=== PATIENT | female | born 1965 | race Caucasian/White ===

== ENCOUNTER 2019-04-15 05:15 | Emergency (ER) | payer BC ==
[~2019-04-15] VITALS: Ht 167.6 cm; Wt 47.8 kg
[~2019-04-15 05:15] MED LIST: MULT-658 PO
[2019-04-15] MEDS ORDERED: ONDANSETRON 2MG/ML, 2ML ONE (05:54)
[2019-04-15] MEDS ORDERED: SODIUM CHLORIDE FLUSH 10ML SYR IVF ONE (06:00)
[2019-04-15] MEDS ORDERED: ONDANSETRON 2MG/ML, 2ML IVPush ONE (06:00)
[2019-04-15] MEDS ORDERED: SODIUM CHLORIDE 0.9% 1,000ML IVBOLUS ONE (06:00)
--- NOTE | 2019-04-15 06:10 | NUR ---
PT TO ED AFTER SYNCOPE EPISODE THIS AM IN RESTROOM. PT STATES SHE HAS RECENTLY BEEN TREATED FOR UC C ABX, INCREASED WATERY STOOL X 4 DAYS, INCREASED FOUL SMELL X 2 DAYS, ~12# WT LOSS OVER LAST MONTH. PT SENT SAMPLE TO [facility] YESTERDAY TO R/O C DIFF. PT ON MONITOR. PIV ESTB. NSB INFUSING WELL, PT STATES SHE FEELS NAUSEATED BUT REFUSING ZOFRAN. HAT & CUP AT FOR STOOL COLLECTION. FAMILY AT . CALL BRANDONSp SANTANA.
[2019-04-15 06:13] LABS: BASOPHILS # (AUTO) 0.05 x10^3/uL (0-0.1); BASOPHILS % (AUTO) 1 % (0-1); EOSINOPHILS # (AUTO) 0.08 x10^3/uL (0-0.4); EOSINOPHILS % (AUTO) 1 % (1-7); LYMPHOCYTES # (AUTO) 0.71 x10^3/uL (1-3.4); LYMPHOCYTES % (AUTO) 6 % (22-44); MD NO; MEAN CORPUSCULAR HEMOGLOBIN 30.8 pg (27.0-34.8); MEAN CORPUSCULAR HGB CONC 32.6 g/dL (32.4-35.8); MEAN CORPUSCULAR VOLUME 94.5 fL (80-100); MEAN PLATELET VOLUME 7.7 fL (7.4-10.4); MONOCYTES # (AUTO) 0.79 x10^3/uL (0.2-0.8); MONOCYTES % (AUTO) 7 % (2-9); NEUTROPHILS # (AUTO) 10.34 x10^3/uL (1.8-6.8); NEUTROPHILS % (AUTO) 86 % (42-75); PLATELET COUNT 509 x10^3/uL (130-400); RED BLOOD COUNT 5.11 x10^6/uL (3.82-5.3); RED CELL DISTRIBUTION WIDTH 13.1 % (9.6-15.2)
[2019-04-15 06:26] LABS: ALANINE AMINOTRANSFERASE 18 U/L (12-78); ALBUMIN 3.6 g/dL (3.4-5.0); ANION GAP 7 mmol/L (5-15); CHLORIDE 97 mmol/L (98-107); CREATININE 1.01 mg/dL (0.55-1.02)
[2019-04-15 06:28] LABS: ALKALINE PHOSPHATASE 80 U/L (45-117); BILIRUBIN,TOTAL 0.6 mg/dL (0.2-1.0); TOTAL PROTEIN 8.2 g/dL (6.4-8.2)
--- NOTE | 2019-04-15 06:55 | NUR ---
BEDSIDE REPORT RECEIVED FROM COREY RN, ASSUMED CARE OF PT. PT UPDATED ON POC BY JALEN, ORDERS RECIEVED FOR POTASSIUM REPLACEMENT, VSS.
[2019-04-15] MEDS ORDERED: POTASSIUM CHLORIDE 40 MEQ in SODIUM CHLORIDE 0.9% 500 ML IV ONE (07:00)
--- NOTE | 2019-04-15 07:16 | NUR ---
ERMD IN TO EVAL PT, ADDITIONAL ORDERS RECIEVED, DISCUSSED PO INTAKE TO OBTAIN STOOL SAMPLE PT HAS ATTEMPTED 2 TIMES WITH NO SUCCESS
[2019-04-15] MEDS ORDERED: POTASSIUM CHLORIDE 20 MEQ TAB.ER.PRT ONE (07:22)
[2019-04-15] MEDS ORDERED: POTASSIUM CHLORIDE 20 MEQ TAB.ER.PRT PO ONE (07:30)
[2019-04-15 08:03] LABS: MICROSCOPIC AUTO
[2019-04-15 08:05] LABS: CULTURE INDICATED? YES
--- NOTE | 2019-04-15 08:19 | NUR ---
STOOL SAMPLE OBTAINED AND WALKED TO LAB. VSS, NAD NOTED
[2019-04-15 09:17] VITALS: BP 96/60
--- NOTE | 2019-04-15 09:18 | NUR ---
PT RESTING ON [facility] NOTED. POTASSIUM INFUSION RUNNING, NO NEEDS AT THIS TIME
[2019-04-15 09:26] LABS: CLOSTRIDIUM DIFFICILE ANTIGEN NEGATIVE; CLOSTRIDIUM DIFFICILE TOXIN NEGATIVE (Negative)
--- NOTE | 2019-04-15 10:04 | NUR ---
PT PLACED FOR RECHECK
--- NOTE | 2019-04-15 10:26 | NUR ---
Patient/Caregiver given discharge instructions and they have confirmed that they understand the instructions. Patient ambulatory with steady gait.
== END 2019-04-15 10:38 | disposition home or self-care (01) ==
LOC: ED 06:54
DX: N30.01 Acute cystitis with hematuria (principal); R19.7 Diarrhea, unspecified; R55 Syncope and collapse; E87.6 Hypokalemia; R00.0 Tachycardia, unspecified
CPT/HCPCS: 36415; 71045; 80053; 81001; 85025; 87086; 87324; 89055; 93005; 96361; 96365; 96366; 99284; J3480; J7030; J7040